=== PATIENT | female | born 1990 | race Two or more races ===

== ENCOUNTER 2016-10-05 21:01 | Observation (INO) | payer OTHER ==
[~2016-10-05] VITALS: Ht 162.6 cm; Wt 81.6 kg
[2016-10-05] MEDS ORDERED: PREN-88 PO (22:02)
[2016-10-05] MEDS: LACTATED RINGERS 1,000 ML IV SCH ×2 (22:28→22:41)
[2016-10-05 23:15] LABS: BASOPHILS % 0.2 % (0.0-2.0); EOSINOPHILS % 0.7 % (0.0-5.0); HEMATOCRIT. 28.8 % (36.0-48.0); HEMOGLOBIN. 9.2 g/dL (12.0-16.0); LYMPHOCYTES % 13.8 % (20.0-50.0); MEAN CORPUSCULAR HEMOGLOBIN 25.5 pg (28.0-32.0); MEAN CORPUSCULAR HGB CONC 31.9 g/dL (31.0-37.0); MEAN PLATELET VOLUME 9.1 fl (7.4-10.4); MONOCYTES % 7.8 % (2.0-8.0); NEUTROPHILS % 77.5 % (40.0-76.0); PLATELET 200 x1000/uL (130-400); RED BLOOD CELL COUNT 3.61 mill/uL (4.2-5.4); RED CELL DISTRIBUTION WIDTH 14.2 % (11.6-14.6); WHITE BLOOD COUNT 9.3 x1000/uL (4.5-11.0)
== END 2016-10-06 00:30 | disposition home or self-care (01) ==
LOC: L&D 21:01
PROVIDERS: ADMIT Specialist; ATTEND Specialist
DX: O26.899 Other specified pregnancy related conditions, unspecified trimester (principal); R10.9 Unspecified abdominal pain; M54.9 Dorsalgia, unspecified; Z3A.00 Weeks of gestation of pregnancy not specified
CPT/HCPCS: 36415; 80051; 85025; 96360; 96361; 99281; G0378; J7120

== ENCOUNTER 2017-09-14 13:44 | Emergency (ER) | payer OTHER ==
[~2017-09-14] VITALS: Ht 160 cm; Wt 73.0 kg
[~2017-09-14 13:44] MED LIST: PREN-88 PO
[2017-09-14 13:47] VITALS: BP 131/71
== END 2017-09-14 14:37 | disposition home or self-care (01) ==
LOC: ER 14:33
DX: R51 Headache (principal); V49.9XXA Car occupant (driver) (passenger) injured in unspecified traffic accident, initial encounter; Y93.89 Activity, other specified; Y92.89 Other specified places as the place of occurrence of the external cause; Y99.8 Other external cause status
CPT/HCPCS: 99282; 99283